=== PATIENT | male | born 1975 | race Two or more races ===

== ENCOUNTER 2017-11-22 16:43 | Emergency (ER) | payer SELFPAY ==
[2017-11-22 16:51] VITALS: BP 125/86; PULSE 126; RESP 16; TEMP 99.9; O2SAT 96
--- NOTE | 2017-11-22 17:22 | ED PDOC ---
HPI: Psych/Substance Abuse Time Seen by Provider: 11/22/17 16:55 Chief Complaint (Nursing): Psychiatric Evaluation Chief Complaint (Provider): Denies complaint Additional Complaint(s): 42 yo male with no medical problems brought in for evaluation by EMS. Pt states he initially can in for evaluation alcohol abuse. Pt states that he initially wanted detox but now he would like to leave. Discussed further evaluation and screening exam. Pt does not want additional help in ER. Pt states he would like to go get a beer. Pt denies SI/HI is calm and cooperative in Er. Past Medical History Reviewed: Historical Data, Nursing Documentation, Vital Signs Vital Signs: Last Vital Signs Temp 99.9 F H 11/22/17 16:44 Pulse 126 H 11/22/17 16:44 Resp 16 11/22/17 16:44 BP 125/86 11/22/17 16:44 Pulse Ox 96 11/22/17 16:44 - Medical History PMH: No Chronic Diseases - Family History Family History: States: Unknown Family Hx - Social History Alcohol: > 2 Drinks/Day ([place]ite) Drugs: Denies - Allergies Allergies/Adverse Reactions: Allergies Allergy/AdvReac Type Severity Reaction Status Date / Time Unobtainable Allergy Verified 11/22/17 17:12 Review of Systems ROS Statement: Except As Marked, All Systems Reviewed And Found Negative Constitutional: Negative for: Fever, Chills Gastrointestinal: Negative for: Nausea, Vomiting, Abdominal Pain Physical Exam - Reviewed Nursing Documentation Reviewed: Yes Vital Signs Reviewed: Yes - Physical Exam Appears: Positive for: Well, Non-toxic Head Exam: Positive for: ATRAUMATIC, NORMAL INSPECTION, NORMOCEPHALIC Skin: Positive for: Normal Color Eye Exam: Positive for: Normal appearance ENT: Positive for: Normal ENT Inspection Neck: Positive for: Normal, Painless ROM Cardiovascular/Chest: Positive for: Tachycardia Respiratory: Negative for: Accessory Muscle Use, Respiratory Distress Extremity: Positive for: Normal ROM Neurologic/Psych: Positive for: Alert, Oriented, Gait. Negative for: Facial Droop - ECG O2 Sat by Pulse Oximetry: 96 Medical Decision Making Medical Decision Making: Discussed withdrawal from alcohol and possible complications. Pt demonstrated understanding and does not want addittional treatment in ER. Ambulates with steady gait to waiting room. Disposition - Clinical Impression Clinical Impression: Alcohol abuse - Patient ED Disposition Is Patient to be Admitted: No - Disposition Disposition: Routine/Home Disposition Time: 17:24 Condition: STABLE
== END 2017-11-22 17:10 | disposition home or self-care (01) ==
LOC: H.ER 16:43
DX: F10.10 Alcohol abuse, uncomplicated (principal)